=== PATIENT | male | born 1980 | race Caucasian/White ===

== ENCOUNTER → 2020-09-23 15:10 | Outpatient (CLI) | payer BC, SELFPAY ==
[2020-09-23 15:38] LABS: Basophils # 0.1 K/mm3 (0-0.2); Basophils % 0.8 % (0.1-2.0); Eosinophils # 0.2 K/mm3 (0.0-0.4); Eosinophils % 1.6 % (0.1-12.0); Hematocrit 46.7 % (42.0-52.0); Hemoglobin 16.3 g/dL (14.1-18.0); Lymphocytes # 5.3 K/mm3 (0.7-4.5); Lymphocytes % 50.4 % (10-50); Mean Corpuscular HGB Conc 34.8 g/dL (31.8-35.4); Mean Corpuscular Hemoglobin 32.1 pg (27.0-31.2); Mean Corpuscular Volume 92.3 fl (80-94); Mean Platelet Volume 7.7 fl (7.4-10.4); Monocytes # 0.3 K/mm3 (0.1-1.0); Monocytes % 2.9 % (1.7-9.3); Neutrophils # 4.7 K/mm3 (1.8-7.8); Neutrophils % 44.3 % (37.0-80.0); Platelet Count 148 K/mm3 (142-424); Red Blood Count 5.06 M/mm3 (4.60-6.20); Red Cell Distribution Width 12.9 % (11.5-17.5); White Blood Count 10.5 K/mm3 (4.8-10.8)
[2020-09-23 15:40] LABS: MANUAL DIFFERENTIAL MANUAL DIFFERENTIAL (MANUAL DIFF)
[2020-09-23 16:01] LABS: Erythrocyte Sedimentation Rate 10 mm/hr (0-15)
[2020-09-23 16:10] LABS: Eosinophils % 3 % (0-3); Lymphocytes % 21 % (10-50); Monocytes % 16 % (2-9); Neutrophils % 44 % (42-76); Platelet Estimate Normal; RBC Morphology Normal; Total Cells Counted 100
[2020-09-23 16:34] LABS: Alanine Aminotransferase 23 U/L (12-78); Albumin Level 4.8 g/dl (3.5-5.0); Albumin/Globulin Ratio 1.6 (1.1-1.8); Alkaline Phosphatase 109 U/L (38-126); Anion Gap 14.8 mEq/L (5-15); Aspartate Amino Transferase 36 U/L (17-59); Bilirubin,Total 0.9 mg/dl (0.2-1.3); Blood Urea Nitrogen 10 mg/dl (9-20); Calcium 9.2 mg/dl (8.4-10.2); Carbon Dioxide 26 mmol/L (22.0-30.0); Chloride 103 mmol/L (98-107); Estimated Glomerular Filt Rate 108 ml/min (>60); GFR (African American) 131 ML/MIN (>60); Glucose 89 mg/dl (74-100); Potassium 3.8 mmoL/L (3.5-5.1); Sodium 140 mmol/L (136-145); Total Protein,Serum 7.8 g/dl (6.3-8.2)
[2020-09-23 16:46] LABS: C-Reactive Protein 2.1 mg/L (0-4)
[2020-09-23 16:51] LABS: 25-OH Vitamin D, Total 44.1 ng/mL (30-100)
[2020-09-23 17:06] LABS: Thyroid Stimulating Hormone 1.51 uIU/mL (0.465-4.68)
[2020-09-23 17:24] LABS: Vitamin B12 252 pg/mL (239-931)
[2020-09-28 13:11] LABS: Saccharomyces cerevisiae, IgA <20.0 Units (0.0-24.9); Saccharomyces cerevisiae, IgG <20.0 Units (0.0-24.9)
== END ==
PROVIDERS: Visit Provider Internal Medicine Adolescent Medicine
DX: R10.30 Lower abdominal pain, unspecified (principal); K92.1 Melena
CPT/HCPCS: 36415; 80053; 82306; 82607; 84443; 85007; 85025; 85651; 86140; 86256; 86671

== ENCOUNTER → 2021-11-24 10:00 | Outpatient (CLI) | payer BC, SELFPAY ==
[2021-11-24 13:26] LABS: Basophils # 0.1 K/mm3 (0-0.2); Basophils % 0.8 % (0.1-2.0); Eosinophils # 0.1 K/mm3 (0.0-0.4); Eosinophils % 0.8 % (0.1-12.0); Hematocrit 45.1 % (42.0-52.0); Hemoglobin 15.1 g/dL (14.1-18.0); Lymphocytes % 50.8 % (10-50); Mean Corpuscular HGB Conc 33.4 g/dL (31.8-35.4); Mean Corpuscular Hemoglobin 32.4 pg (27.0-31.2); Mean Corpuscular Volume 96.9 fl (80-94); Mean Platelet Volume 10.8 fl (7.4-10.4); Monocytes # 0.4 K/mm3 (0.1-1.0); Monocytes % 3.8 % (1.7-9.3); Neutrophils # 4.3 K/mm3 (1.8-7.8); Neutrophils % 43.8 % (37.0-80.0); Platelet Count 145 K/mm3 (142-424); Red Blood Count 4.66 M/mm3 (4.60-6.20); Red Cell Distribution Width 12.9 % (11.5-17.5); White Blood Count 9.8 K/mm3 (4.8-10.8)
[2021-11-24 13:31] LABS: Chloride 104 mmol/L (98-107); MANUAL DIFFERENTIAL MANUAL DIFFERENTIAL (MANUAL DIFF); Potassium 4.3 mmoL/L (3.5-5.1); Sodium 141 mmol/L (136-145)
[2021-11-24 13:33] LABS: Alanine Aminotransferase 17 U/L (12-78); Alkaline Phosphatase 113 U/L (38-126); Aspartate Amino Transferase 34 U/L (17-59); Bilirubin,Total 0.3 mg/dl (0.2-1.3); Blood Urea Nitrogen 9 mg/dl (9-20); Estimated Glomerular Filt Rate 125 ml/min (>60); GFR (African American) 151 ML/MIN (>60)
[2021-11-24 13:34] LABS: Albumin Level 4.6 g/dl (3.5-5.0); Albumin/Globulin Ratio 1.9 (1.1-1.8); Anion Gap 13.3 mEq/L (5-15); Calcium 9.1 mg/dl (8.4-10.2); Carbon Dioxide 28 mmol/L (22.0-30.0); Chol/HDL Ratio 3.4 (1-3.5); Cholesterol 125 mg/dl (140-200); Globulin 2.4 g/dL (1.3-3.2); Glucose 95 mg/dl (74-100); HDL Cholesterol 37 mg/dl (40-60); Iron 68 ug/dL (49-181); Triglycerides 70 mg/dl (30-150); VLDL Cholesterol 14 mg/dL (0-40)
[2021-11-24 13:44] LABS: Eosinophils % 1 % (0-3); Lymphocytes % 36 % (10-50); Monocytes % 17 % (2-9); Neutrophils % 46 % (42-76); RBC Morphology Normal; Total Cells Counted 100
[2021-11-24 13:45] LABS: Platelet Estimate Slight Decrease
[2021-11-24 13:48] LABS: Direct LDL Cholesterol 66.25 mg/dL (100-129); Total Iron Binding Capacity 316 ug/dL (261-462)
[2021-11-24 13:52] LABS: Free T4 (Free Thyroxine) 1.11 ng/dl (0.78-2.19)
[2021-11-24 13:56] LABS: 25-OH Vitamin D, Total 36.6 ng/mL (30-100)
[2021-11-24 14:08] LABS: Thyroid Stimulating Hormone 0.88 uIU/mL (0.465-4.68)
[2021-11-24 14:12] LABS: Ferritin 63.7 ng/ml (17.9-464)
[2021-11-24 14:27] LABS: Vitamin B12 300 pg/mL (239-931)
== END ==
PROVIDERS: PCP Emergency Medicine; Visit Provider Emergency Medicine
DX: R53.83 Other fatigue (principal); E55.9 Vitamin D deficiency, unspecified
CPT/HCPCS: 80053; 80061; 82306; 82607; 82728; 83540; 83550; 84439; 84443; 85007; 85025

== ENCOUNTER → 2021-12-07 07:25 | Outpatient (CLI) | payer BC, OTHER, SELFPAY ==
--- NOTE | 2021-12-07 12:25 | US_ITS ---
FINAL REPORT CLINICAL HISTORY: stomach cramps FINDINGS: Sonographic images of the right upper quadrant were obtained. The pancreas is partially obscured.The liver has an unremarkable appearance. There is sludge in the gallbladder. There is no evidence of biliary ductal dilatation.The common duct measures 2 mm. The portal vein is normal measuring 12 mm. Limited images of the right kidney are unremarkable. IMPRESSION: Gallbladder sludge. Reviewed, Interpreted and Dictated by Deshaun Thomas III, MD Transcribed by Spring Barrientos Authenticated and [facility]
== END ==
PROVIDERS: PCP Emergency Medicine; Visit Provider Emergency Medicine
DX: R07.9 Chest pain, unspecified (principal); R01.1 Cardiac murmur, unspecified; R10.9 Unspecified abdominal pain
CPT/HCPCS: 76705; 78452; 93017; 93306; A9502

== ENCOUNTER → 2022-01-07 09:21 | Outpatient (CLI) | payer BC, OTHER, SELFPAY ==
--- NOTE | 2022-01-07 09:21 | NM_ITS ---
FINAL REPORT CLINICAL HISTORY: Abnormal US of Gallbladder 9:30 am 7.61 mci tc choletec 1.7 mcg of cck injected into lt ant no pain during cck FINDINGS: Sequential anterior projection images of the abdomen were obtained after the intravenous injection of 7.61 mCi technetium 99m Choletec. There is normal uptake of radiotracer by the liver. The bile ducts are visualized by 30 minutes. Gallbladder activity is seen. Bowel activity is noted by 40 minutes. After 1 hour, 1.7 ?g of CCK was injected intravenously for calculation of gallbladder ejection fraction. There is no pain during CCK injection. The gallbladder ejection fraction is 94 %, which is within normal limits. IMPRESSION: No evidence of cystic duct or bile duct obstruction. Normal gallbladder ejection fraction of 94 %. Reviewed, Interpreted and Dictated by Ky Sanchez MD Transcribed by SREEKANTH Swift Authenticated and . [facility]
== END ==
PROVIDERS: PCP Emergency Medicine; Visit Provider Emergency Medicine
DX: R93.5 Abnormal findings on diagnostic imaging of other abdominal regions, including retroperitoneum (principal)
CPT/HCPCS: 78227; A9537; J2805

== ENCOUNTER 2022-11-18 00:14 | Emergency (ER) | payer BC, OTHER, SELFPAY ==
[2022-11-18] VITALS (7 sets, daily range): BP systolic 108–137; BP diastolic 74–88; PULSE 54–71; RESP 14–20; TEMP 36.7; O2SAT 96–99; BMI 25.2
--- NOTE | 2022-11-18 00:27 | XR_ITS ---
PROCEDURE INFORMATION: Exam: XR Chest Exam date and time: 11/18/2022 12:57 AM Age: 42 years old Clinical indication: Sternal or substernal pain; Additional info: Chest pain TECHNIQUE: Imaging protocol: Radiologic exam of the chest. Views: 1 view. Total images: 1 COMPARISON: [facility] HEPATOBILIARY W PHARM 01/07/2022 10:40 AM FINDINGS: Lungs: Multiple scattered bilateral calcified pulmonary granuloma. No consolidation. No pulmonary vascular congestion or edema. Pleural spaces: Unremarkable. No pleural effusion. No pneumothorax. Heart/Mediastinum: Unremarkable. No cardiomegaly. No mediastinal widening or hilar enlargement. Bones/joints: Unremarkable. IMPRESSION: 1. No radiographically acute cardiopulmonary process. 2. Remote calcified granulomatous disease.
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
--- NOTE | 2022-11-18 00:39 | ECG_ITS ---
APPROVED REPORT Exam: Resting ECG HR:65 bpm ECG Measurements Heart Rate 65 AXES GA 143 P 71 QRSd 101 QRS 47 QT 372 T 48 QTc 384 Conclusion SINUS RHYTHM INCOMPLETE RIGHT BUNDLE BRANCH BLOCK [90+ ms QRS DURATION, TERMINAL R IN V1/V2, 40+ ms S IN I/aVL/V4/V5/V6] BORDERLINE ECG UNCONFIRMED REPORT Electronically signed by : Adi Garduno MD 11/18/2022 12:07:30
[2022-11-18 00:45] LABS: Basophils # 0.1 K/mm3 (0-0.2); Basophils % 0.4 % (0.1-2.0); Eosinophils # 0.2 K/mm3 (0.0-0.4); Eosinophils % 1.5 % (0.1-12.0); Hematocrit 41.5 % (42.0-52.0); Hemoglobin 14.1 g/dL (14.1-18.0); Lymphocytes # 6.8 K/mm3 (0.7-4.5); Lymphocytes % 57.6 % (10-50); Mean Corpuscular Hemoglobin 31.4 pg (27.0-31.2); Mean Corpuscular Volume 92.3 fl (80-94); Mean Platelet Volume 8.9 fl (7.4-10.4); Monocytes # 0.4 K/mm3 (0.1-1.0); Monocytes % 3.4 % (1.7-9.3); Neutrophils # 4.4 K/mm3 (1.8-7.8); Neutrophils % 36.9 % (37.0-80.0); Platelet Count 140 K/mm3 (142-424); Red Cell Distribution Width 12.6 % (11.5-17.5); White Blood Count 11.8 K/mm3 (4.8-10.8)
[2022-11-18 00:47] LABS: MANUAL DIFFERENTIAL MANUAL DIFFERENTIAL (MANUAL DIFF)
[2022-11-18 00:48] LABS: Chloride 106 mmol/L (98-107); Potassium 3.8 mmoL/L (3.5-5.1); Sodium 139 mmol/L (136-145)
[2022-11-18 00:51] LABS: Alanine Aminotransferase 21 U/L (12-78); Albumin/Globulin Ratio 1.6 (1.1-1.8); Alkaline Phosphatase 87 U/L (38-126); Anion Gap 8.8 mEq/L (5-15); Aspartate Amino Transferase 30 U/L (17-59); Bilirubin,Total 0.4 mg/dl (0.2-1.3); Blood Urea Nitrogen 7 mg/dl (9-20); Carbon Dioxide 28 mmol/L (22.0-30.0); Creatinine Clearance Estimated 122 mL/min (50-200); Estimated Glomerular Filt Rate 107 ml/min (>60); GFR (African American) 129 ML/MIN (>60); Globulin 2.5 g/dL (1.3-3.2); Total Protein,Serum 6.5 g/dl (6.3-8.2)
[2022-11-18 00:52] LABS: Calcium 8.6 mg/dl (8.4-10.2); Glucose 100 mg/dl (74-100)
[2022-11-18 00:54] LABS: Activated Partial Thrombo Time 29.2 seconds (22.8-30.6); INR 1.08 (0.9-1.1); Prothrombin Time 11.6 seconds (10.1-12.5)
--- NOTE | 2022-11-18 01:17 | PC.NURSE ---
rounded on patient, tv remote given. patient updated on status of lab work
[2022-11-18 01:24] LABS: Troponin I < 0.01 ng/ml (0.00-0.034)
[2022-11-18 01:56] LABS: Eosinophils % 1 % (0-3); Lymphocytes % 46 % (10-50); Monocytes % 1 % (2-9); Neutrophils % 51 % (42-76); Total Cells Counted 100
[2022-11-18 01:57] LABS: Platelet Estimate Normal; RBC Morphology Normal
[2022-11-18 03:00] LABS: Troponin I < 0.01 ng/ml (0.00-0.034)
== END 2022-11-18 03:37 | disposition home or self-care (01) ==
PROVIDERS: Emergency Provider Emergency Medicine; PCP Emergency Medicine
DX: R07.9 Chest pain, unspecified (principal); R06.02 Shortness of breath; F17.200 Nicotine dependence, unspecified, uncomplicated; V86.55XA Driver of 3- or 4- wheeled all-terrain vehicle (ATV) injured in nontraffic accident, initial encounter; I45.19 Other right bundle-branch block
CPT/HCPCS: 71045; 80053; 84484; 85007; 85025; 85610; 85730; 93005; 96374; 96375; 99285; J2405